=== PATIENT | male | born 1985 | race Two or more races ===

== ENCOUNTER 2023-09-04 10:29 | Emergency (ER) | payer OTHER ==
[~2023-09-04] VITALS: Ht 170.2 cm; Wt 81.6 kg
[2023-09-04] MEDS ORDERED: NALO4SPR BNOSTRILS (11:50)
[2023-09-04 14:21] VITALS: BP 132/80; TEMP 98.2; O2SAT 99
== END 2023-09-04 14:37 | disposition home or self-care (01) ==
LOC: ER 10:29 → EDBD 10:29 → ER 14:37
DX: T40.411A Poisoning by fentanyl or fentanyl analogs, accidental (unintentional), initial encounter (principal); Y92.89 Other specified places as the place of occurrence of the external cause